=== PATIENT | male | born 1995 | race Caucasian/White ===

== ENCOUNTER 2017-05-16 02:30 | Emergency (ER) | payer OTHER ==
[~2017-05-16] VITALS: Ht 167.6 cm; Wt 59.0 kg
[~2017-05-16 02:30] MED LIST: BENADRYL25 MG PO; GUAIFENESIN-CO118 ML PO; HYDROCODON-ACE1 EAC8 PO; NORCO 5-325 TA1 EACH PO; OMEPRAZOLE20 MG PO; ONDANSETRON ODT4 MG PO; PENICILLIN V P500 MG PO; PEPCID20 MG PO; PROMETHAZINE HC25 M1 PO; TYLENOL WITH C1 EACH PO; XANAX0.5 MG PO
[2017-05-16] MEDS ORDERED: MAXALT MLT5 MG SL (04:27)
== END 2017-05-16 04:37 | disposition home or self-care (01) ==
LOC: ED 02:30
DX: G43.109 Migraine with aura, not intractable, without status migrainosus (principal); F41.0 Panic disorder [episodic paroxysmal anxiety]; Z79.899 Other long term (current) drug therapy
CPT/HCPCS: 96361; 96374; 96375; 99283; J1200; J1885; J2405; J2765; J7030

== ENCOUNTER 2021-05-10 22:33 | Emergency (ER) | payer OTHER ==
[~2021-05-10] VITALS: Ht 167.6 cm; Wt 63.5 kg
[~2021-05-10 22:33] MED LIST changes: +CELEXA20 MG PO; +MAXALT MLT5 MG SL; +ZOFRAN ODT4 MG PO
[2021-05-10] MEDS ORDERED: PROMETHAZINE HC25 M1 PO (22:58)
== END 2021-05-10 23:12 | disposition home or self-care (01) ==
LOC: ED 22:33
DX: B34.9 Viral infection, unspecified (principal); Z20.822 Contact with and (suspected) exposure to COVID-19; Z79.899 Other long term (current) drug therapy
CPT/HCPCS: 99284; C9803; U0003

== ENCOUNTER 2021-05-13 17:56 | Emergency (ER) | payer OTHER ==
[~2021-05-13] VITALS: Ht 167.6 cm; Wt 63.5 kg
--- OUTSIDE RECORDS SUMMARY | 2021-05-13 18:04 | XMS ---
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 Pauline VISIT COUNT (12 MO.) 2 [facility] TOTAL 2 NOTE: Visits indicate total known visits. ED/UCC VISIT TRACKING (12 MO.) 05/13/2021 17:56 [facility] [place] TYPE: Emergency COMPLAINT: - COLD SYMPTOMS 05/10/2021 22:34 [facility] [place] TYPE: Emergency COMPLAINT: - COLD SYMPTOMS,HEADACHE INPATIENT VISIT TRACKING (12 MO.) No inpatient visits to display in this time frame [email or web address]
[2021-05-13] MEDS ORDERED: ZOFRAN4 MG PO (20:42)
== END 2021-05-13 22:05 | disposition home or self-care (01) ==
LOC: ED 17:56
DX: A08.4 Viral intestinal infection, unspecified (principal); Z20.822 Contact with and (suspected) exposure to COVID-19
CPT/HCPCS: 80053; 85025; 96374; 99284-25; C9803; J2405; J7030; U0003

== ENCOUNTER 2021-06-23 14:31 | Emergency (ER) | payer OTHER ==
[~2021-06-23] VITALS: Ht 172.7 cm; Wt 59.0 kg
[~2021-06-23 14:31] MED LIST changes: +ZOFRAN4 MG PO
[2021-06-23] MEDS ORDERED: ESCITALOPRAM OX10 MG PO (15:39)
[2021-06-23] MEDS ORDERED: ZOFRAN4 MG PO (19:36)
== END 2021-06-23 19:53 | disposition home or self-care (01) ==
LOC: ED 14:31
DX: R53.83 Other fatigue (principal); R53.81 Other malaise; R11.2 Nausea with vomiting, unspecified; R10.13 Epigastric pain; T50.B95A Adverse effect of other viral vaccines, initial encounter; Z79.899 Other long term (current) drug therapy
CPT/HCPCS: 80053; 81001; 83690; 85025; 99283; J7030